=== PATIENT | female | born 1950 | race Caucasian/White ===

== ENCOUNTER → 2024-09-05 | Day surgery (SDC) | payer OTHER ==
[2024-08-30 11:01] VITALS: BMI 25.4
[~2024-09-05] MED LIST: ACETAMINOPHEN 500 MG TABLET (FP) PO PRN
[2024-09-05] MEDS: BUPIVACAINE HCL/PF 0.5% (5MG/ML) 10 ML VIAL IJ ONE (13:26)
[2024-09-05 14:02] VITALS: PULSE 64; RESP 16; TEMP 97.7
[2024-09-05 14:19] VITALS: BP 150/74
== END | disposition home or self-care (01) ==
LOC: JASU-SURG 04:39
PROVIDERS: ATTEND Pain Medicine Pain Medicine
PROC: 3E0T33Z Introduction of Anti-inflammatory into Peripheral Nerves and Plexi, Percutaneous Approach (ICD-10-PCS; 2024-09-05)
PROC: 3E0T3BZ Introduction of Anesthetic Agent into Peripheral Nerves and Plexi, Percutaneous Approach (ICD-10-PCS; principal; 2024-09-05 14:00)
DX: M47.812 Spondylosis without myelopathy or radiculopathy, cervical region (principal)
CPT/HCPCS: 76000-TC-FY

== ENCOUNTER 2024-10-17 10:00 | Day surgery (SDC) | payer OTHER ==
[2024-10-14 13:04] VITALS: BMI 25.4
[2024-10-17 10:46] VITALS: PULSE 60; RESP 18
[2024-10-17 12:53] VITALS: BP 162/90; TEMP 98
== END 2024-10-17 13:30 | disposition home or self-care (01) ==
LOC: JASU-SURG 10:00
PROVIDERS: ATTEND Pain Medicine Pain Medicine
PROC: 3E0T3BZ Introduction of Anesthetic Agent into Peripheral Nerves and Plexi, Percutaneous Approach (ICD-10-PCS; principal; 2024-10-17 12:15)
DX: M47.812 Spondylosis without myelopathy or radiculopathy, cervical region (principal)
CPT/HCPCS: 76000-TC-FY

== ENCOUNTER 2024-12-06 07:02 | Day surgery (SDC) | payer OTHER ==
[2024-12-05 11:19] VITALS: BMI 29.7
[2024-12-06 08:14] VITALS: RESP 16; TEMP 96.9
[2024-12-06] MEDS: LIDOCAINE HCL 1% PRESERVATIVE FREE - 30ML VIAL IJ ONE ×2 (09:45)
[2024-12-06] MEDS: LIDOCAINE HCL/PF 2% SDV 5ML VIAL INF ONE ×3 (09:58)
[2024-12-06] MEDS: BUPIVACAINE HCL/PF 0.5% (5MG/ML) 10 ML VIAL IJ ONE ×2 (10:06)
[2024-12-06] MEDS: DEXAMETHASONE SOD PHOSPHATE 10 MG/1 ML VIAL IVPUSH ONE ×2 (10:06)
[2024-12-06 10:48] VITALS: BP 150/46; PULSE 60
[2024-12-06] MEDS ORDERED: ACETAMINOPHEN 500 MG TABLET (FP) PO PRN (13:29)
== END 2024-12-06 10:55 | disposition home or self-care (01) ==
LOC: JASU-SURG 07:02
PROVIDERS: ATTEND Pain Medicine Pain Medicine
PROC: 01513ZZ Destruction of Cervical Nerve, Percutaneous Approach (ICD-10-PCS; principal; 2024-12-06 09:15)
DX: M47.812 Spondylosis without myelopathy or radiculopathy, cervical region (principal)
CPT/HCPCS: J1100